=== PATIENT | female | born 2000 | race Hispanic/Latino ===

== ENCOUNTER 2020-11-06 17:52 | Emergency (ER) | payer OTHER ==
[2020-11-06] MEDS ORDERED: DiphenhydrAMINE HCL 50 MG/ML VIAL ONE (18:19)
== END 2020-11-06 20:06 | disposition home or self-care (01) ==
LOC: EDH 17:52
DX: R09.89 Other specified symptoms and signs involving the circulatory and respiratory systems (principal); Z72.0 Tobacco use
CPT/HCPCS: 70360; 96372; 99283; J1200